=== PATIENT | male | born 1980 | race Caucasian/White ===

== ENCOUNTER 2020-02-29 08:42 | Outpatient (CLI) | payer BC ==
--- NOTE | 2020-02-29 13:32 | NM ---
EXAM: NM Gastric Empty Scan W/Meal PROVIDED CLINICAL HISTORY: Unspecified nausea and vomiting. COMPARISON: None FINDINGS: Sequential anterior imaging of the abdomen was performed after administration of 2.1 mCi technetium 9 9m sulfur colloid mixed in scrambled egg. There is 40% emptying at 30 minutes, 46% emptying at 1 hour, 60% emptying at 2 hours, 93% emptying at 3 hours, 98% emptying at 4 hours. IMPRESSION: Normal gastric emptying with 90% emptying at 4 hours.
== END 2020-02-29 08:43 | disposition home or self-care (01) ==
LOC: NM 08:42
PROVIDERS: ATTEND Internal Medicine
DX: R10.13 Epigastric pain (principal); R11.2 Nausea with vomiting, unspecified
CPT/HCPCS: 78264; A9541